=== PATIENT | male | born 1940 | race Caucasian/White ===

== ENCOUNTER 2023-08-16 20:09 | Inpatient (IN) ==
[2023-08-16] MEDS: fentaNYL 100 mcg/2 ml 50 MCG/ML VIAL IV SLOW PU ONE (20:32)
[2023-08-16] MEDS ORDERED: Ondansetron 4 mg VIAL 2 MG/ML 2 ml VIAL IV PRN (20:45)
[2023-08-16] MEDS ORDERED: Naloxone 0.4 mg VIAL 0.4 mg/ml 1 ml VIAL IV PUSH PRN (20:50)
[2023-08-16 20:51] LABS: ABS Lymphocytes 0.8 10^3/uL (1.0-4.8); ABS Monocytes 0.4 10^3/uL (0.0-1.1); ABS Neutrophils 6.3 10^3/uL (1.5-7.6); Eosinophil % 0.1 %; Hematocrit 38.7 % (38-53); Hemoglobin 13.3 g/dL (13.2-16.3); Lymphocyte % 10.5 %; Mean Corpuscular Hemoglobin 30.8 pg (27-33); Mean Corpuscular Hgb Conc 34.3 g/dL (31-36); Mean Corpuscular Volume 89.9 fL (80-97); Mean Platelet Volume 8.6 fL (7.5-11.2); Platelet Count 165 10^3/uL (150-450); Red Blood Count 4.31 10^6/uL (4.06-5.63); Red Cell Distribution Width 13.9 % (12-17); White Blood Count 7.6 10^3/uL (3.6-10.2)
[2023-08-16] MEDS: Acetaminophen IV 1 GM/100ML 1,000 MG/100 ML BAG IV SCH (20:57)
[2023-08-16 21:10] LABS: ALT 16 U/L (7-52); AST 15 U/L (13-39); Albumin 2.8 g/dL (3.2-5.2); Albumin/Globulin Ratio 1.6 (1-3); Alcohol, S < 13 mg/dL (<13); Alkaline Phosphatase 30 U/L (35-149); Anion Gap 10 mmol/L (2-16); Blood Urea Nitrogen 11 mg/dL (6-24); CO2 Carbon Dioxide 23 mmol/L (22-32); Calcium 6.6 mg/dL (8.6-10.3); Chloride 110 mmol/L (101-111); Creatinine, Serum 0.47 mg/dL (0.67-1.17); Globulin 1.7 g/dL (2-4); Glucose 92 mg/dL (70-100); Potassium 3.3 mmol/L (3.5-5.0); Sodium 143 mmol/L (135-145); Total Bilirubin 0.5 mg/dL (0.2-1.0); Total Protein 4.5 g/dL (6.4-8.9); eGFR CKD-EPI 105.1 (>60)
[2023-08-16] MEDS: Calcium Carb (TUMS) 500 mg CHEW TAB PO ONE (22:34)
[2023-08-16] MEDS: Potassium Chlor 20 meq TAB.ER PO ONE (22:34)
[2023-08-16] MEDS: Enoxaparin 40 MG/0.4 ML SYR SUBCUT ONE (22:37)
[2023-08-16 22:41] LABS: Magnesium 1.6 mg/dL (1.9-2.7)
[2023-08-16] MEDS ORDERED: LORazepam 2 mg VIAL 1 ml IV PUSH SCH (23:00)
[2023-08-16 23:10] LABS: Vitamin D Total 25(OH) 16.1 ng/mL (20-50)
[2023-08-16] MEDS: Thiamine 100 MG/ML 2 ml VIAL 100 MG, Folic Acid IV 1 MG, Multiple Vitamin IV ADULT 10 M... IV ONE (23:28)
[2023-08-17] MEDS ORDERED: Lorazepam PYXIS KEY PRN (00:20)
[2023-08-17] MEDS: HYDROmorphone 0.5 MG/0.5 ML SYRINGE IV SLOW PU PRN (01:39)
[2023-08-17] MEDS: Magnesium Sulfate 2 gm BAG 2 GM/50 ML BAG IVPB ONE ×2 (02:15→13:07)
[2023-08-17] MEDS: Magnesium Sulfate IV 1GM/100ML 1 GM/100 ML BAG IV ONE (02:16)
[2023-08-17 04:26] LABS: Calcium (PTH Intact) 6.6 mg/dL (8.6-10.3)
[2023-08-17 07:01] LABS: Hematocrit 33.1 % (38-53); Hemoglobin 11.5 g/dL (13.2-16.3); Mean Corpuscular Hgb Conc 34.8 g/dL (31-36); Mean Corpuscular Volume 89.1 fL (80-97); Mean Platelet Volume 8.5 fL (7.5-11.2); Platelet Count 136 10^3/uL (150-450); Red Blood Count 3.71 10^6/uL (4.06-5.63); Red Cell Distribution Width 13.9 % (12-17); White Blood Count 4.6 10^3/uL (3.6-10.2)
[2023-08-17 07:10] LABS: INR 1.15 (0.83-1.13)
[2023-08-17] MEDS: Cholecalciferol (VIT D3) 1,000 unit TAB PO SCH (08:15)
[2023-08-17 08:19] LABS: Calcium 7.8 mg/dL (8.6-10.3); Creatinine, Serum 0.53 mg/dL (0.67-1.17); Magnesium 1.7 mg/dL (1.9-2.7); eGFR CKD-EPI 101.3 (>60)
[2023-08-17] MEDS ORDERED: Ondansetron 4 mg VIAL 2 MG/ML 2 ml VIAL IV PRN (10:23)
[2023-08-17] MEDS ORDERED: Naloxone 0.4 mg VIAL 0.4 mg/ml 1 ml VIAL IV PRN (10:23)
[2023-08-17] MEDS ORDERED: fentaNYL 100 mcg/2 ml 50 MCG/ML VIAL ONE (10:58)
[2023-08-17] MEDS: fentaNYL 100 mcg/2 ml 50 MCG/ML VIAL IV PRN (10:59)
[2023-08-17 12:27] LABS: Hematocrit 35.3 % (38-53); Hemoglobin 11.9 g/dL (13.2-16.3)
[2023-08-17] MEDS: ceFAZolin 2 GM/50 ML BAG IV ONE (12:32)
[2023-08-17] MEDS: Lactated Ringers 1000 ml BAG 1,000 ML IV ONE (14:14)
[2023-08-18] MEDS: Multivitamins/Minerals TAB PO SCH (08:17)
[2023-08-18 10:05] LABS: ABS Lymphocytes 1.1 10^3/uL (1.0-4.8); ABS Monocytes 0.6 10^3/uL (0.0-1.1); ABS Neutrophils 3.4 10^3/uL (1.5-7.6); Eosinophil % 0.6 %; Hemoglobin 10.5 g/dL (13.2-16.3); Lymphocyte % 21.6 %; Mean Corpuscular Hemoglobin 31.4 pg (27-33); Mean Corpuscular Hgb Conc 35.1 g/dL (31-36); Mean Corpuscular Volume 89.5 fL (80-97); Mean Platelet Volume 8.5 fL (7.5-11.2); Nucleated Red Blood Cells % 0.1 %/100WBC (0.0-0.8); Platelet Count 129 10^3/uL (150-450); Red Blood Count 3.35 10^6/uL (4.06-5.63); Red Cell Distribution Width 13.9 % (12-17); White Blood Count 5.3 10^3/uL (3.6-10.2)
[2023-08-18 10:35] LABS: Calcium 7.6 mg/dL (8.6-10.3); Creatinine, Serum 0.52 mg/dL (0.67-1.17); Potassium 3.9 mmol/L (3.5-5.0); eGFR CKD-EPI 101.9 (>60)
[2023-08-18] MEDS: Calcium (OSCAL) 500 mg TAB PO SCH (12:28)
[2023-08-18] MEDS: Enoxaparin 40 MG/0.4 ML SYR SUBCUT SCH (18:10)
[2023-08-20] MEDS: Triamcinolone Acetonide 40 mg VIAL 40 mg/ml 1 ml VIAL INTRAARTIC ONE (19:16)
[2023-08-22 09:26] LABS: ABS Lymphocytes 0.4 10^3/uL (1.0-4.8); ABS Monocytes 0.2 10^3/uL (0.0-1.1); ABS Neutrophils 7.6 10^3/uL (1.5-7.6); ABS Nucleated RBC 0.01 10^3/ul; Hematocrit 30.8 % (38-53); Hemoglobin 10.7 g/dL (13.2-16.3); Lymphocyte % 5.4 %; Mean Corpuscular Hemoglobin 31.4 pg (27-33); Mean Corpuscular Hgb Conc 34.7 g/dL (31-36); Mean Corpuscular Volume 90.3 fL (80-97); Nucleated Red Blood Cells % 0.1 %/100WBC (0.0-0.8); Platelet Count 266 10^3/uL (150-450); Red Blood Count 3.42 10^6/uL (4.06-5.63); Red Cell Distribution Width 13.6 % (12-17); White Blood Count 8.3 10^3/uL (3.6-10.2)
[2023-08-22 09:46] LABS: Calcium 8.9 mg/dL (8.6-10.3); Creatinine, Serum 0.49 mg/dL (0.67-1.17); Potassium 4.2 mmol/L (3.5-5.0); eGFR CKD-EPI 103.7 (>60)
[2023-08-23] MEDS: Senna TAB 8.6 mg TAB PO PRN (00:49)
[2023-08-23] MEDS: Polyethylene Glycol 3350 17 GM PACKET PO PRN (08:56)
[2023-08-23] MEDS: Magnesium Hydroxide LIQ 30 ML UDC PO SCH (10:18)
[2023-08-23 10:33] VITALS: BP 131/88
[2023-08-23 13:36] LABS: Rapid COVID-19 Molecular Undetected (Undetected)
== END 2023-08-23 13:45 | DRG 482 ==
LOC: ED 20:09 → SUATTDRO 20:45 → EDHOLD 20:45 → MED 08-17 00:41 → SSU 08-17 12:27
PROVIDERS: ADMIT Internal Medicine; ATTEND Internal Medicine